=== PATIENT | female | born 1985 | race Caucasian/White ===

== ENCOUNTER 2023-12-10 13:58 | Emergency (ER) | payer BC, SELFPAY ==
[2023-12-10 14:05] VITALS: BP 127/72; PULSE 88; RESP 19; TEMP 36.9; O2SAT 100; BMI 33.9
--- NOTE | 2023-12-10 14:09 | ED_ITS ---
HPI - Extremity Problem <ISAMAR Estevez Last Filed: 12/10/23 15:22> General Chief complaint: Extremity Injury, Lower Stated complaint: rt ankle injury Time Seen by Provider: 12/10/23 14:08 History of Present Illness HPI Narrative: This is a 37-year-old female presents to the emergency department due to right ankle pain. She states that she was walking and rolled her ankle inverting it. Denies any numbness or decreased range of motion in her toes. Related Data Allergies Allergy/AdvReac Type Severity Reaction Status Date / Time No Known Drug Allergies Allergy Verified 12/10/23 14:11 Review of Systems <ISAMAR Estevez Last Filed: 12/10/23 15:22> Review of Systems Narrative: GENERAL: Denies chills, fatigue, malaise, fever, sweats. HEENT: Denies sinus pain, ear pain, sore throat, difficulty swallowing, dizziness. RESPIRATORY: Denies dyspnea, cough, wheezing, hemoptysis, sputum. CARDIOVASCULAR: Denies chest pain, palpitations, orthopnea, edema, GASTROINTESTINAL: Denies nausea, vomiting, abdominal pain, diarrhea, constipation, melena. : Denies dysuria, frequency, incontinence, hematuria, urinary retention. MUSCULOSKELETAL: Reports right ankle pain. SKIN: Denies rash, skin lesions, or other NEUROLOGIC: Denies weakness, headache, numbness, change in speech, confusion, seizures, incoordination. PSYCHIATRIC: No concerning psychosocial issues. 12 point review of systems is negative except for those stated above Patient History <ISAMAR Estevez Last Filed: 12/10/23 15:22> Social History Smoking Status: Never smoker Exam <ISAMAR Estevez Last Filed: 12/10/23 15:22> Narrative Exam Narrative: GENERAL: Well-developed patient, in mild distress. HEAD: Atraumatic. Normocephalic. EYES: Pupils equal round and reactive. Extraocular motions intact. No scleral icterus. No injection or drainage. ENT: Nose without bleeding, purulent drainage. Throat without erythema, tonsillar hypertrophy or exudate. Airway patent. NECK: Trachea midline. Non tender EXTREMITIES: Tenderness to palpation to the lateral medial malleolus of the right ankle. Neurovascularly intact throughout. NEURO: AOx3. SKIN: No rash or erythema of visible areas Initial Vital Signs Initial Vital Signs: Vital Signs Temperature 98.4 F 12/10/23 14:05 Pulse Rate 88 12/10/23 14:05 Respiratory Rate 19 12/10/23 14:05 Blood Pressure 127/72 12/10/23 14:05 Pulse Oximetry 100 12/10/23 14:05 Oxygen Delivery Method Room Air 12/10/23 14:05 <Becca Fregoso DO - Last Filed: 12/10/23 17:25> Initial Vital Signs Initial Vital Signs: Vital Signs Temperature 98.4 F 12/10/23 14:05 Pulse Rate 88 12/10/23 14:05 Respiratory Rate 19 12/10/23 14:05 Blood Pressure 127/72 12/10/23 14:05 Pulse Oximetry 100 12/10/23 14:05 Oxygen Delivery Method Room Air 12/10/23 14:05 Course <ISAMAR Estevez Last Filed: 12/10/23 15:22> Orders Ordered: ED Orders 12/10/23 14:12 XR ankle RT min 3V Stat Vital Signs Vital signs: Vital Signs - 8 hr 12/10/23 14:05 12/10/23 15:28 Temperature 98.4 F Pulse Rate 88 96 H Respiratory Rate 19 20 Blood Pressure 127/72 126/75 Pulse Oximetry 100 99 Oxygen Delivery Method Room Air Room Air <DO Bessie Oliveira Last Filed: 12/10/23 17:25> Orders Ordered: ED Orders 12/10/23 14:12 XR ankle RT min 3V Stat Vital Signs Vital signs: Vital Signs - 8 hr 12/10/23 14:05 12/10/23 15:28 Temperature 98.4 F Pulse Rate 88 96 H Respiratory Rate 19 20 Blood Pressure 127/72 126/75 Pulse Oximetry 100 99 Oxygen Delivery Method Room Air Room Air MDM - Extremity (Nontraumatic) <ISAMAR Estevez Last Filed: 12/10/23 15:22> Imaging Data Extremity x-ray #1: Radiologist's Impression: [address] [address] XRay Report Signed Patient: Lillian Moise MR#: [id number] : 1985 Acct:[id number] Age/Sex: 37 / F Date of Service: 12/10/23 Loc: ED Accession Number: [id number] Procedure: XR ankle RT min 3V Ordering Provider: Jorje Ferrari P.A-C PROCEDURE: XR ANKLE RT MIN 3V INDICATIONS: injury TECHNIQUE: 3 views of the ankle were acquired. COMPARISON: None. FINDINGS: Bones: No fractures or dislocations. Ankle mortise is normally aligned. No suspicious bony lesions. Mild osteophytosis is present at the medial malleolus. There is a small calcaneal enthesophyte. There is a small corticated bone fragment adjacent to the medial malleolus. Soft tissues: No tibiotalar joint effusion. Achilles tendon appears normal. IMPRESSION: 1. Small corticated bone fragment adjacent to the medial malleolus which may represent degenerative changes. However, small avulsion fracture cannot be excluded. Please correlate with point tenderness and consider short interval repeat imaging to evaluate for healing if there is high clinical suspicion for avulsion fracture. Dictated by: Tana Flores M.D. on 12/10/2023 at 15:04 Approved by: Tana Flores M.D. on 12/10/2023 at 15:07 [facility] Narrative Medical decision making narrative: ED course: This is a 37-year-old female presents emergency department after rolling her right ankle. X-rays ordered which showed the possibility of a very small avulsion fracture to the medial malleolus versus chronic degenerative changes. Recommended patient follow up with the primary care provider in a couple of weeks for repeat x-rays for further evaluation. Recommended supportive care with rest, ice, compression, elevation. CC: Right ankle pain Complicating co-morbidities: None Data collected from: Previous notes Medical records reviewed: Patient has not been to this emergency department in the past. Differential considered, but not limited to: Fracture, sprain Exam documented above, pertinent findings include: Tenderness to palpation to the lateral and medial malleolus Lab Test results independently reviewed as above. Pertinent findings: None obtained Imaging studies independently reviewed: As above Scores Used: None MIPS Elements: None Consultations: None Treatments: None Re-evaluations: None Discussion: Discussed plan with the patient was comfortable with the plan Diagnosis: Right ankle sprain Disposition: see below, along with detailed discharge instructions that have been reviewed with patient as well as indications for ED re-evaluation and additional outpatient follow up Discharge Plan Departure Patient Disposition: Home Clinical Impression: Acute ankle pain Activity Restrictions/Additional Instructions: Thank you for coming to the [facility] Emergency Department today. As we discussed there is the possibility of a very very small fracture to the medial aspect of the right ankle. This is unclear if this is a true fracture or chronic degenerative changes of the bone. I recommend he follow up with the primary care provider in a couple of weeks for repeat x-rays if your pain continues. For now please treat this as you would ankle sprain with the rest, ice, compression, elevation. Please return to the emergency department if you develop any numbness, significantly worsening pain, or any other concerning signs or symptoms. I hope you feel better soon. Please follow up with your primary care provider within a week if your symptoms continue. If you do not have a primary care provider please contact the [facility] Resource line at [phone]. They will ask some questions about your medical history and help you get set up with a provider in the community. Stand Alone Forms: Patient Portal/API ED Sign-out <Becca Fregoso DO - Last Filed: 12/10/23 17:25> Cosign ED Attending Noel Attestation: I was immediately available in the department for consultation.
--- NOTE | 2023-12-10 14:12 | DI.RAD.S_ITS ---
PROCEDURE: XR ANKLE RT MIN 3V INDICATIONS: injury TECHNIQUE: 3 views of the ankle were acquired. COMPARISON: None. FINDINGS: Bones: No fractures or dislocations. Ankle mortise is normally aligned. No suspicious bony lesions. Mild osteophytosis is present at the medial malleolus. There is a small calcaneal enthesophyte. There is a small corticated bone fragment adjacent to the medial malleolus. Soft tissues: No tibiotalar joint effusion. Achilles tendon appears normal. IMPRESSION: 1. Small corticated bone fragment adjacent to the medial malleolus which may represent degenerative changes. However, small avulsion fracture cannot be excluded. Please correlate with point tenderness and consider short interval repeat imaging to evaluate for healing if there is high clinical suspicion for avulsion fracture. Dictated by: Tana Flores M.D. on 12/10/2023 at 15:04 Approved by: Tana Flores M.D. on 12/10/2023 at 15:07
--- NOTE | 2023-12-10 14:18 | PC.NURSE ---
Walking and twisted right ankle yesterday at 1600. Arrived in wheelchair to ER room.
[2023-12-10 15:28] VITALS: BP 126/75; PULSE 96; RESP 20; O2SAT 99
== END 2023-12-10 15:28 | disposition home or self-care (01) ==
PROVIDERS: Emergency Provider Physician Assistant Medical
DX: M25.571 Pain in right ankle and joints of right foot (principal); X50.1XXA Overexertion from prolonged static or awkward postures, initial encounter
CPT/HCPCS: 73610; 99283

== ENCOUNTER 2025-06-28 07:24 | Day surgery (SDC) | payer OTHER, SELFPAY ==
[2025-06-25 13:29] VITALS: BMI 33.9
--- NOTE | 2025-06-28 | PATH_ITS ---
[facility] Accession Number: [id number] No. of containers..01 Tissue . 01 Material submitted: . fallopian tube - BILATERAL FALLOPIAN TUBES . 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 No evidence of neoplasm. MRV 07/02/2025 1603 Local . 01 Electronically signed: . Chip Chandler MD, PhD, Pathologist NPI- [id number] . 01 Gross description: . Received in formalin with two identifiers and bilat fallopian tubes, are two unoriented fimbriated fallopian tubes, 6.9 x 0.7 cm and 6.5 x 0.8 cm. Both tubes have smooth violaceous smooth serosa with cystic structures up to 0.9 cm in greatest dimension filled with clear serous fluid. 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 A1: Longer fallopian tube. A2: [place] fallopian tube. ([id number]) /MRV 06/29/2025 1825 Local . 01 Microscopic: . Complete cross-sections of fallopian tube are seen. . 01 Pathologist provided ICD-10: Z30.2 . 01 CPT . 347780 Specimen Comment: A courtesy copy of this report has been sent to [phone] Performed at: [address] [facility] [address], [place], [place] [id number] MD Kenneth Clemens MD Phone: [phone]
[2025-06-28 08:19] VITALS: BMI 33.9
[2025-06-28] MEDS: SCOPOLAMINE 1 PATCH TOP (08:28)
[2025-06-28] MEDS: LACTATED RINGERS 1,000 ML 42 ML IV (08:29)
[2025-06-28] MEDS: FAMOTIDINE 20 MG/2 ML VIAL IV (08:29)
[2025-06-28] MEDS: ACETAMINOPHEN IV 1,000 MG/100 ML VIAL 400 MG IV (08:29)
[2025-06-28 08:43] VITALS: BP 131/76; PULSE 80; RESP 16; TEMP 36.5; O2SAT 100
--- NOTE | 2025-06-28 09:06 | PM.PREOP ---
Pre-operative Note COVID-19 COVID-19 status: Not tested Interval Note History & Physical reviewed/Exam performed by Physician: Yes Changes to H&P: No
--- NOTE | 2025-06-28 09:49 | SUR.OPER ---
Lithotomy on padded OR bed, head on pillow, bilateral arms padded with gel pads and gauze and tucked. Legs secured in padded yellow fins stirrups.
[2025-06-28] MEDS: BUPIVACAINE 0.5% W/ EPI (PF) 30 ML VIAL INJ (10:17)
[2025-06-28 10:42] VITALS: BP 101/53; PULSE 74; RESP 16; TEMP 36.3; O2SAT 98
[2025-06-28 10:49] VITALS: BP 100/53; PULSE 78; RESP 16; O2SAT 98
[2025-06-28] MEDS: BENZOCAINE/MENTHOL 1 LOZ PKT 1 EACH PO (10:53)
--- NOTE | 2025-06-28 10:53 | P.OP_ITS ---
Operative Date/Time/Diagnoses Date of procedure: 06/28/25 Time of procedure: 09:50 Pre-op diagnosis: Request for sterilization Post-op diagnosis: other (Same as above; right broad ligament fibroid) Procedure & Clinicians Procedure: Procedures Operation Date: 06/28/25 09:00 Actual Procedure Side Surgeon p Laparoscopic Bilateral Salpingectomy Bilateral Sid Slater MD Indications: Lillian is a 39-year-old nulligravida whose last menstrual periods is uncertain due to the fact that she is on continuous OCs, who presents with her today for sterilization consult. Her underwent vasectomy a week ago but she herself wants to make absolutely certain that she is unable to get now at any time in the future. She is currently on continuous OCs due to irregular and occasionally heavy menses and she plans to continue continuous OCs following sterilization. The patient and her were counseled regarding alternatives, risks, benefits, and potential complications associated with laparoscopic bilateral salpingectomy. She understands that this is a procedure which will result in permanent and irreversible inability to bear children in the future without benefit of assisted reproductive technology. She further understands that this procedure does carry a small (1-12/999) risk of failing and should such a occur, it is highly likely that the would be ectopic in location. With full understanding of the above she expresses a desire to move forward with laparoscopic bilateral salpingectomy and she presents today for her scheduled surgery. Surgeon: Sid Slater Anesthesia Type: General Operative Notes Findings: The uterus is normal in size and shape but there is a 5 x 3 cm right intraligamentous/broad ligament fibroid on the right side extending from the lateral aspect of the upper fundus toward the right pelvic sidewall. The right fallopian tube is splayed out over the intraligamentous fibroid but otherwise the fibroid does not affect the adnexa or any other structures. Both fallopian tubes appeared to be normal as do both ovaries. There is no evidence of endometriosis in the posterior cul-de-sac or anterior cul-de-sac. There were no other abnormalities visible laparoscopically in the abdomen or pelvis. Closure Type: primary Specimen(s): portion of left tube and portion of right tube Applied: none Estimated blood loss (mL): 10 Blood products transfused: none Procedure in detail: With the patient under satisfactory general anesthesia in the modified dorsal lithotomy position, the perineum, vagina, and abdomen were prepped and draped for IUD removal and laparoscopic bilateral salpingectomy. A pre-surgical safety time-out was then taken in accordance with [facility] Main OR protocols. The umbilicus was then infiltrated with 0.5% Marcaine with epinephrine and 1 cm vertical incision was made in the inferior aspect of the umbilicus. Veress needle was used to insufflate the abdomen with carbon dioxide and once appropriately insufflated, 5 mm bladeless trocar and sleeve were inserted through the incision. Proper placement of the sleeve was confirmed with laparoscopic visualization and insufflation of the abdomen continued. A 2nd and 3rd 5 mm laparoscopic port were placed in the right and left mid quadrants using a similar technique and using a 3 puncture technique, the abdomen and pelvis were visualized with the findings as noted above. The distal aspect of the left fallopian tube was then grasped with a grasping forceps and using a Power Seal device, fimbria ovarica was coagulated and divided the dissection using the Power Seal continuing across the mesosalpinx to the cornua where the base fallopian tube was coagulated and divided. The left fallopian tube was then removed through one of the ports and submitted pathologic specimen. Attention was then turned to the right adnexa with distal tube grasped with a grasping forcep. The Power Seal device was then used to coagulate fimbria ovarica and the dissection was carried across the mesosalpinx to the cornua where the fallopian tube on the right side was amputated at the cornua following coagulation proximal tube the Power Seal device. Pelvis was inspected and there were no abnormalities noted following bilateral salpingectomy. The pneumoperitoneum was then vented and the ports removed from the abdominal wall. Port incisions were then closed with 4-0 Monocryl using inverted interrupted stitches and skin glue was applied. Appropriate dressings were then applied, patient was awakened, and transferred to the PACU for a period of observation after having tolerated the procedure well. Complications: none Post-operative Condition: stable Disposition: PACU Plan for aftercare: Routine postoperative care with plans for follow-up in 2 weeks.
[2025-06-28 10:58] VITALS: BP 110/70; PULSE 68; RESP 16; TEMP 36.2; O2SAT 98
== END 2025-06-28 13:36 | disposition home or self-care (01) ==
PROVIDERS: PCP Obstetrics & Gynecology; Referring Provider Obstetrics & Gynecology; Visit Provider Obstetrics & Gynecology
PROC: 0UT74ZZ Resection of Bilateral Fallopian Tubes, Percutaneous Endoscopic Approach (ICD-10-PCS; CPT 58661; principal; 2025-06-28 09:00)
DX: Z30.2 Encounter for sterilization (principal); D25.9 Leiomyoma of uterus, unspecified; N83.8 Other noninflammatory disorders of ovary, fallopian tube and broad ligament
CPT/HCPCS: 58661; 81025; A9270; J0131; J1100; J1171; J1885; J2250; J2405; J2704; J3010; J3490